=== PATIENT | female | born 1950 | race Caucasian/White ===

== ENCOUNTER 2018-01-17 16:18 | Outpatient (CLI) | payer OTHER ==
[2018-01-17 17:14] LABS: BASOPHILS % 0.9 (0.0-1.5); EOSINOPHILS % 2.2 % (0.0-6.8); MEAN CORPUSCULAR HEMOGLOBIN 30.6 pg (28.0-34.0); MEAN CORPUSCULAR VOLUME 91.6 fl (80.0-100.0); MONOCYTES % 6.2 % (0.0-11.0); NEUTROPHILS # 4.4 # k/uL (1.4-7.7)
== END 2018-01-17 16:19 ==
LOC: LAB 16:18
PROVIDERS: ATTEND Internal Medicine Nephrology
DX: I10 Essential (primary) hypertension (principal); I63.9 Cerebral infarction, unspecified; Z68.35 Body mass index [BMI] 35.0-35.9, adult
CPT/HCPCS: 36415; 80069; 85025

== ENCOUNTER 2018-02-17 21:52 | Emergency (ER) | payer OTHER, MEDICARE ==
--- NOTE | 2018-02-17 22:32 | ED Physician Documentation ---
Chest Pain - HISTORIAN Historian: patient, spouse - HPI Stated Complaint: Chest pain Chief Complaint: Chest Pain Additional Information: pt here w/ c/o cp after large meal at [employer]. has noted bloating belching and cp after large meals on freq occasion. takes occ prevacid relieves. she also notices chest pain involving both shoulders and axillary areas. this doden not always happen after meals - no specific foods are inccriminated Onset: hours (1-2) Timing: gradual onset, still present, better Duration: constant, waxing Last known Well Date: 02/18/18 Last Known Well Time: 17:40 Severity: moderate Quality: pressure, tightness. denies: indigestion Chest Pain Radiation: shoulders Chest Pain Signs/Symptoms: nausea, dyspnea. 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 denies: no pertinent history Neuro deficit: CVA Lung disease: none Surgeries/Procedures: cholecysectomy, other (knees) Allergies/Adverse Reactions: Allergies Allergy/AdvReac Type Severity Reaction Status Date / Time No Known Allergies Allergy Unverified 02/17/18 22:35 Home Medications: Ambulatory Orders Medication Instructions Recorded Aspirin [Ki] 325 mg PO DAILY 02/17/18 Atorvastatin Calcium 10 mg PO HS 02/17/18 Bupropion HCl [Wellbutrin Xl] 150 mg PO DAILY 02/17/18 CloNIDine HCL [Catapress] 0.1 mg PO PRN PRN 02/17/18 Escitalopram Oxalate [Lexapro] 20 mg PO DAILY 02/17/18 Hydrochlorothiazide 25 mg PO DAILY 02/17/18 Valsartan [Diovan] 160 mg PO DAILY 02/17/18 amLODIPine BESYLATE [Norvasc] 5 mg PO HS 02/17/18 - SOCIAL HX Smoking History: non-smoker Alcohol Use: none Drug Use: none - FAMILY HX Family HX: CAD over 55 - REVIEWED ASSESSMENTS Nursing Assessment Reviewed: Yes Vitals Reviewed: Yes ED Results Lab/Radiology - Orders Orders: ED Orders Category Date Time Status Continuous EKG monitoring Q30M Care 02/17/18 22:24 Ordered Continuous Pulse Oximetry Q30M Care 02/17/18 22:[address] IV Lock 1T Care 02/17/18 22:24 Ordered CBC/PLATELET/DIFF Routine Lab 02/17/18 22:24 Ordered CMP Routine Lab 02/17/18 22:24 Ordered TROPONIN I (cTnI) Stat Lab 02/17/18 22:24 Ordered Aspirin Med 02/17/18 22:24 Once 324 mg PO NOW ONE Gi Cocktail Med 02/17/18 22:25 Ordered Mag Hydrox/Aluminum Hyd/Simeth [Mylanta] 30 ml Lidocaine 2%Visc 15ml [Xylocaine] 20 mg PHENobarb/HYOSCY/ATROPINE/SCOP [] 10 ml PO NOW EKG WITH COMPARISON Stat Ther 02/17/18 22:24 Ordered Chest Pain Physical Exam - EXAM General Appearance: anxious EENT: eye inspection normal Neck: nml inspection Respiratory: no resp. distress, nml breath sounds CVS: reg. rate & rhythm Abdomen: soft, tenderness (slight generalized) Skin: warm/dry, normal color. No: cyanosis, diaphoresis, jaundice, mottled Extremities: non-tender, normal range of motion Neuro: oriented X3, CN's nml as tested, motor nml, sensation nml, mood/affect nml Discharge Clincal Impression: chest pain resolved from xs eating, possible peptic acid disease Referrals: Hillary Ellsworth DO [Primary Care Provider] - 2 Days Condition: Good Disposition: 01 HOME, SELF-CARE Decision to Admit: NO Decision Time: 23:45
[2018-02-17] MEDS: MAG HYDROX/ALUMINUM HYD/SIMETH 30 ML, Lidocaine 2%Visc 15ml 20 MG, PHENobarb/HYOSCY/ATR... PO ONE ×3 (22:35)
[2018-02-17] MEDS: ASPIRIN 81 MG CHEW TAB PO ONE (22:35)
[2018-02-17] MEDS: MAG HYDROX/ALUMINUM HYD/SIMETH 30 ML UDC PO ONE (22:36)
[2018-02-17] MEDS: Lidocaine 2%Visc 15ml 20 MG/ML UDC ONE (22:36)
[2018-02-17 23:04] LABS: eGFR (African) > 60; eGFR (Non-African) > 60
[2018-02-17 23:45] LABS: BASOPHILS % 0.4 (0.0-1.5); EOSINOPHILS % 1.4 % (0.0-6.8); MEAN CORPUSCULAR VOLUME 92.9 fl (80.0-100.0); MONOCYTES % 6.8 % (0.0-11.0); NEUTROPHILS # 4.6 # k/uL (1.4-7.7)
[2018-02-18 00:46] VITALS: BP 145/50
== END 2018-02-18 00:01 | disposition home or self-care (01) ==
LOC: ED 21:52
DX: R07.89 Other chest pain (principal)
CPT/HCPCS: 80053; 84484; 85025; 93005; A9270; 99283; S1016

== ENCOUNTER 2018-09-20 08:55 | Outpatient (CLI) | payer OTHER, MEDICARE ==
[2018-09-20 09:41] LABS: BASOPHILS % 0.4 (0.0-1.5); MEAN CORPUSCULAR HEMOGLOBIN 30.5 pg (28.0-34.0); MONOCYTES % 6.9 % (0.0-11.0); NEUTROPHILS # 5.7 # k/uL (1.4-7.7)
== END 2018-09-20 08:56 ==
LOC: LAB 08:55
PROVIDERS: ATTEND Internal Medicine Nephrology
DX: I10 Essential (primary) hypertension (principal); K30 Functional dyspepsia; Z68.36 Body mass index [BMI] 36.0-36.9, adult
CPT/HCPCS: 36415; 84550; 85025; 85651; 86038; 86431